=== PATIENT | female | born 2000 | race Two or more races ===

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

== ENCOUNTER 2020-04-28 11:15 | Outpatient (CLI) | payer OTHER | END 2020-04-28 11:23 | disposition home or self-care (01) | LOC: RAD 11:15 → EDSEX 11:15 → RAD 11:23 | PROVIDERS: ATTEND Orthopaedic Surgery | DX: M25.561 Pain in right knee (principal) ==

== ENCOUNTER 2020-04-29 08:28 | Outpatient (CLI) | payer OTHER | END 2020-04-29 09:13 | disposition home or self-care (01) | LOC: RAD 08:28 | PROVIDERS: ATTEND Orthopaedic Surgery | DX: S82.124A Nondisplaced fracture of lateral condyle of right tibia, initial encounter for closed fracture (principal); M25.571 Pain in right ankle and joints of right foot ==

== ENCOUNTER 2020-05-06 11:10 | Outpatient (CLI) | payer OTHER | END 2020-05-06 11:28 | disposition home or self-care (01) | LOC: RAD 11:10 | PROVIDERS: ATTEND Orthopaedic Surgery | DX: S82.124A Nondisplaced fracture of lateral condyle of right tibia, initial encounter for closed fracture (principal) ==

== ENCOUNTER 2020-05-18 15:33 | Outpatient (CLI) | payer OTHER | END 2020-05-18 15:56 | disposition home or self-care (01) | LOC: RAD 15:33 | PROVIDERS: ATTEND Orthopaedic Surgery | DX: M25.561 Pain in right knee (principal) ==

== ENCOUNTER 2020-06-20 13:48 | Outpatient (CLI) | payer OTHER | END 2020-06-20 13:57 | disposition home or self-care (01) | LOC: RAD 13:48 | PROVIDERS: ATTEND Orthopaedic Surgery | DX: S82.121D Displaced fracture of lateral condyle of right tibia, subsequent encounter for closed fracture with routine healing (principal) ==